=== PATIENT | female | born 1975 | race African-American/Black ===

== ENCOUNTER 2023-04-26 12:27 | Emergency (ER) | payer SELFPAY ==
[~2023-04-26] VITALS: Ht 162.6 cm; Wt 93.2 kg
[2023-04-26 12:32] VITALS: TEMP 101
[2023-04-26 14:41] VITALS: BP 124/99; PULSE 73
== END 2023-04-26 14:41 | disposition home or self-care (01) ==
LOC: COL.ER 12:27
DX: U07.1 COVID-19 (principal); R05.9 Cough, unspecified; R07.9 Chest pain, unspecified; R09.81 Nasal congestion; R06.89 Other abnormalities of breathing; F17.290 Nicotine dependence, other tobacco product, uncomplicated

== ENCOUNTER 2024-03-24 17:27 | Emergency (ER) | payer OTHER ==
[~2024-03-24] VITALS: Ht 165.1 cm; Wt 81.8 kg
[~2024-03-24 17:27] MED LIST: FLEXERIL 1010 MG/TAB PO; NORCO 325 MG-51 TAB PO; PREDNISONE50 MG PO
[2024-03-24 17:31] VITALS: TEMP 98.6
[2024-03-24] MEDS ORDERED: NS 1,000 ML IV ONE (18:15)
[2024-03-24 18:59] LABS: MEAN CELL VOLUME 72 fl (80.0-100.0); MEAN CORPUSCULAR HGB CONC 29 g/dl (33.0-37.0); MEAN PLATELET VOLUME 9.6 fl (7.4-10.4); PLATELET COUNT 406 K/mm3 (130-400); RED BLOOD COUNT 3.58 M/mm3 (4.10-5.30); REDCELL DISTRIBUTION WIDTH-CV 18.1 % (11.5-14.5)
[2024-03-24 19:02] LABS: COLLECTION METHOD CLEAN CATCH
[2024-03-24 19:12] LABS: URINE APPEARANCE TURBID (CLEAR/HAZY); URINE BLOOD NEGATIVE (NEGATIVE); URINE COLOR YELLOW (YELLOW); URINE GLUCOSE NEGATIVE (NEGATIVE); URINE KETONE NEGATIVE (NEGATIVE); URINE NITRATE NEGATIVE (NEGATIVE); URINE PROTEIN(semi-quant) TRACE (NEGATIVE)
[2024-03-24 19:14] LABS: ALBUMIN 3.3 g/dL (3.5-5.0); BILIRUBIN,TOTAL 0.2 mg/dL (0.2-1.2); C-REACTIVE PROTEIN 0.23 mg/dL (0.00-0.50); CALCIUM 9.4 mg/dL (8.4-10.2); CREATININE, serum 0.68 mg/dL (0.57-1.11); TOTAL PROTEIN 6.6 g/dl (6.2-8.1)
[2024-03-24] MEDS ORDERED: Morphine 4 MG/ML VIAL IV ONE (19:15)
[2024-03-24] MEDS ORDERED: Ondansetron 4 MG/2 ML VIAL IV ONE (19:15)
[2024-03-24 19:21] LABS: HEMATOCRIT 25.9 % (37.0-47.0); HEMOGLOBIN 7.6 g/dl (12.5-16.0); MEAN CORPUSCULAR HEMOGLOBIN 21 pg (27-31)
[2024-03-24 19:42] LABS: ANISOCYTOSIS 2+; BAND 1 % (0-10); EOSINOPHIL 2 % (0-4); HYPOCHROMIA 3+; LYMPHOCYTE 36 % (20.0-51.0); METAMYELOCYTE 1 % (0-0); NEUTROPHILS 49 % (42.0-75.2)
[2024-03-24 19:43] LABS: MICROCYTOSIS 1+; PLATELET ESTIMATE INCREASED (NORMAL)
[2024-03-24] MEDS ORDERED: Iohexol 300 - 100 ML VIAL IV ONE (20:58)
[2024-03-24] MEDS ORDERED: NS 50 ML IV ONE (20:58)
[2024-03-24] MEDS ORDERED: fentaNYL 50 MCG/ML 2 ML VIAL IV ONE (21:30)
[2024-03-24 22:23] VITALS: BP 121/75; PULSE 60
[2024-03-25] MEDS ORDERED: CEPHALEXIN500 M1 PO (00:38)
== END 2024-03-24 22:23 | disposition home or self-care (01) ==
LOC: COL.ER 17:27
PROVIDERS: Nurse Practitioner
DX: R10.11 Right upper quadrant pain (principal); R10.13 Epigastric pain; D64.9 Anemia, unspecified; N39.0 Urinary tract infection, site not specified
CPT/HCPCS: J2270; J2405; J3010; J7030; Q9967

== ENCOUNTER 2024-03-26 18:52 | Emergency (ER) | payer OTHER ==
[~2024-03-26] VITALS: Ht 165.1 cm; Wt 81.8 kg
[~2024-03-26 18:52] MED LIST changes: +CEPHALEXIN500 M1 PO
[2024-03-26 18:54] VITALS: TEMP 98.4
[2024-03-26 19:10] LABS: COLLECTION METHOD CLEAN CATCH
[2024-03-26 19:13] LABS: BASO % 0.3 % (0.0-2.0); EOS # 0.1 K/mm3 (0.0-0.7); EOS % 1.7 % (0.0-4.0); GRAN # 4.4 K/mm3 (1.4-6.5); LYMPH # 2.5 K/mm3 (1.2-3.4); LYMPH % 32.1 % (20.0-51.0); MEAN CELL VOLUME 71 fl (80.0-100.0); MEAN CORPUSCULAR HGB CONC 30 g/dl (33.0-37.0); MEAN PLATELET VOLUME 9.1 fl (7.4-10.4); MONO # 0.7 K/mm3 (0.1-0.6); MONO % 8.6 % (1.7-9.3); PLATELET COUNT 469 K/mm3 (130-400); RED BLOOD COUNT 3.92 M/mm3 (4.10-5.30)
[2024-03-26 19:14] LABS: HEMATOCRIT 27.8 % (37.0-47.0); HEMOGLOBIN 8.4 g/dl (12.5-16.0); MEAN CORPUSCULAR HEMOGLOBIN 21 pg (27-31)
[2024-03-26 19:19] LABS: URINE APPEARANCE CLOUDY (CLEAR/HAZY); URINE BLOOD NEGATIVE (NEGATIVE); URINE COLOR YELLOW (YELLOW); URINE GLUCOSE NEGATIVE (NEGATIVE); URINE KETONE TRACE (NEGATIVE); URINE NITRATE NEGATIVE (NEGATIVE); URINE PROTEIN(semi-quant) TRACE (NEGATIVE)
[2024-03-26] MEDS ORDERED: Ketorolac 30 MG/ML VIAL IV ONE (19:30)
[2024-03-26] MEDS ORDERED: NS 1,000 ML IV ONE (19:30)
[2024-03-26] MEDS ORDERED: Ondansetron 4 MG/2 ML VIAL IV ONE (19:30)
[2024-03-26 19:41] LABS: ALBUMIN 3.6 g/dL (3.5-5.0); BILIRUBIN,TOTAL 0.3 mg/dL (0.2-1.2); C-REACTIVE PROTEIN 0.25 mg/dL (0.00-0.50); CREATININE, serum 0.66 mg/dL (0.57-1.11); POTASSIUM 3.6 mEq/L (3.5-4.5); TOTAL PROTEIN 7.2 g/dl (6.2-8.1)
[2024-03-26 20:40] VITALS: BP 120/68; PULSE 66
== END 2024-03-26 20:46 | disposition home or self-care (01) ==
LOC: COL.ER 18:52
PROVIDERS: Nurse Practitioner Primary Care
DX: N39.0 Urinary tract infection, site not specified (principal); K80.20 Calculus of gallbladder without cholecystitis without obstruction; D64.9 Anemia, unspecified
CPT/HCPCS: J1885; J2405; J7030